=== PATIENT | female | born 1970 | race Caucasian/White ===

== ENCOUNTER 2022-04-26 03:38 | Emergency (ER) | payer OTHER ==
[~2022-04-26] VITALS: Ht 154.9 cm; Wt 53.2 kg
[2022-04-26 07:00] LABS: Urine Bacteria FEW /hpf (None Seen); Urine Blood 3+ /uL (Negative); Urine Specific Gravity 1.009 (1.001-1.035); Urine WBC 245 /hpf (0 - 5); Urine WBC Clumps PRESENT /hpf (None Seen)
[2022-04-26 07:48] VITALS: BP 131/64
[2022-04-26] MEDS ORDERED: cefTRIAXone SOD 1,000 MG VL IM ONE (08:00)
[2022-04-26] MEDS ORDERED: NITR-87 PO (08:12)
== END 2022-04-26 08:13 | disposition home or self-care (01) ==
LOC: ER 03:38
DX: N39.0 Urinary tract infection, site not specified (principal); E11.9 Type 2 diabetes mellitus without complications
CPT/HCPCS: 81001; 99283; J0696